=== PATIENT | male | born 1975 ===

== ENCOUNTER 2016-05-14 18:13 | Emergency (ER) | payer BC, OTHER ==
[2016-05-14 18:30] VITALS: TEMP 98.1; O2SAT 96
[2016-05-14] MEDS ORDERED: NS 1,000 ML IV ONE (18:50)
[2016-05-14] MEDS ORDERED: ONDANSETRON 4 MG/2 ML VIAL IVP ONE (18:50)
[2016-05-14] MEDS ORDERED: HYDROmorphONE/DILAUDID 1 MG/ML SYR IVP ONE (18:50)
--- NOTE | 2016-05-14 18:51 | UCPHY ---
H & P Patient Type: New Chief Complaint Nursing Narrative: abdominal pain Source: Patient, Family Exam Limitations: No limitations - Personal History Current Tetanus Diphtheria and Acellular Pertussis (TDAP): Yes - Medical/Surgical History Hx Asthma: No Hx Chronic Respiratory Disease: No Hx Diabetes: No Hx Cardiac Disease: No Hx Renal Disease: No Hx Cirrhosis: No Hx Alcoholism: No Hx HIV/AIDS: No Hx Splenectomy or Spleen Trauma: No Other PMH: hernia - Family History Significant Family History: No pertinent family hx - Social History Smoking Status: Never smoked Time Seen by Provider: 05/14/16 18:47 HPI/ROS: CHIEF COMPLAINT: abdominal pain HISTORY OF PRESENT ILLNESS: 41-year-old male presents to Urgent Care complaining of lower abdominal pain that started 6 hours prior to arrival. Patient reports the pain feels like a cramping twisting pain that is constant. He has had 3 episodes of emesis. He denies nausea but reports when the pain gets severe he vomits. Patient denies diarrhea, he reports mild bilateral flank pain. No difficulty urinating. There is nothing that makes this pain better or worse. Patient reports this has happened 4 or 5 times in the past 2- 3 years, it usually lasts for few hours and then goes away. He has never been seen for this pain. Patient denies cough or cold, no sore throat. He ate breakfast and lunch without difficulty today. Patient drinks 1-2 beers every 2- 3 days, denies drug use. REVIEW OF SYSTEMS: A comprehensive 10 point review of systems is otherwise negative aside from elements mentioned in the history of present illness. (Monika Gallegos) - Physical Exam Exam: Physical Exam Gen: Alert and Oriented, NAD HEENT: PERRL, moist mucous membranes NECK: no meningismus CV: regular rate and regular rhythm PULM: CTAB, no wheezes ABDOMEN: soft, diffuse tenderness to palpation throughout, worse in right lower quadrant, negative rebound tenderness, negative Rovsing's, BS present BACK: Mild bilateral CVA tenderness NEURO: Neurologically grossly intact EXTREMITIES: normal appearing SKIN: no rash PSYCH: answers questions appropriately. (Monika Gallegos) Constitutional: Initial Vital Signs Temperature (C) 36.7 C 05/14/16 18:27 Heart Rate 80 05/14/16 18:27 Respiratory Rate 14 01/20/17 18:27 Blood Pressure 165/93 H 05/14/16 18:27 O2 Sat (%) 96 05/14/16 18:27 O2 Delivery Mode Room Air Allergies/Adverse Reactions: No Known Allergies Allergy (Verified 05/14/16 18:26) Home Medications: Medication Instructions Recorded HYOSCYAMINE SULFATE [LEVSIN-SL] 0.125 - 0.25 mg SL Q6 PRN #20 05/14/16 tab.subl Medical Decision Making ED Course/Re-evaluation: IV established, CBC, chemistry panel, lipase, LFTs and urinalysis ordered. 0.5 mg of Dilaudid, 4 mg of Zofran and 1 L normal saline ordered. 7pm- Report passed on to Dr. Garnica at the end of my shift pending labs and further workup. (oMnika Gallegos) Urgent Care PA supervision Physician documentation: The patient was evaluated and managed by the physician physician assistant initially until her departure at 6:00 p.m... My co-signature indicates that I have reviewed this chart and I agree with the findings and plan of care as documented. I assumed care after 6:00 p.m. and repeat examination patient has minimal lower belly tenderness with hyperactive bowel sounds. He is treated with Levsin 0.25 mg and Toradol with relief from 7/10 pain down to 1/10. He also had relief of nausea with Zofran. He felt significantly improved. In addition to his belly exam is exam revealed no testicular swelling or tenderness. Appreciate no significant evidence for inguinal hernia. Counseled the patient regarding his crampy abdominal pain explaining that he may have food intolerance or adhesions from previous surgery contributing to some crampy discomfort. His labs are benign-CBC, UA and metabolic panel. I counseled regarding these findings as well. He will follow up with Dr. Riley- general surgeon if he has any ongoing worsening symptoms despite the treatment plan. On repeat exam after Levsin tenderness has resolved. (Denys Garnica) - Data Points Laboratory Results: Laboratory Results 05/14/16 18:45 05/14/16 18:45 Medications Given: Discontinued Medications Hydromorphone HCl (Dilaudid) 0.5 mg IVP EDNOW ONE Stop: 05/14/16 18:51 Last Admin: 05/14/16 20:22 Dose: Not Given Hyoscyamine Sulfate (Levsin, Hyomax-Sl) 0.25 mg PO EDNOW ONE Stop: 05/14/16 19:09 Last Admin: 05/14/16 19:15 Dose: 0.25 mg Sodium Chloride (Ns) 1,000 mls @ 0 mls/hr IV ONCE ONE PRN Reason: Wide Open Stop: 05/14/16 18:51 Last Admin: 05/14/16 19:00 Dose: 1,000 mls Ketorolac Tromethamine (Toradol) 30 mg IVP EDNOW ONE Stop: 05/14/16 19:09 Last Admin: 05/14/16 19:15 Dose: 30 mg Ondansetron HCl (Zofran) 4 mg IVP EDNOW ONE Stop: 05/14/16 18:51 Last Admin: 05/14/16 19:00 Dose: 4 mg Departure - Departure Disposition: Home, Routine, Self-Care Clinical Impression: Abdominal cramping in right lower quadrant Condition: Good Instructions: Acute Abdominal Pain (ED) Additional Instructions: Diagnosis: Lower abdominal cramping Your labs were normal tonight Plan: Levsin if needed for cramping in the future Follow up with Dr. Riley if he have any ongoing symptoms despite treatment plan Good the emergency department for any significant worsening despite the treatment plan [place]errals: [place],. [Primary Care Provider] - As per Instructions Jaime Riley MD [Medical Doctor] - As per Instructions Prescriptions: HYOSCYAMINE SULFATE [LEVSIN-SL] 0.125 - 0.25 mg SL Q6 PRN #20 tab.subl PRN Reason: abdominal cramping - PQRS PQRS Measurement: na (Monika Gallegos) NA (Denys Garnica)
[2016-05-14 18:56] LABS: COLOR YELLOW; LEUKOCYTE ESTERASE,URINE NEGATIVE (NEGATIVE); NITRITE,URINE NEGATIVE (NEGATIVE)
[2016-05-14 19:01] LABS: % IMMATURE GRANULYOCYTES 0.2 % (0.0-1.1); ABSOLUTE IMMATURE GRANULOCYTES 0.02 10^3/uL (0.00-0.10); ADD DIFF? NO; ADD MORPH? NO; ADD SCAN? NO; ATYPICAL LYMPHOCYTE FLAG 10 (0-99); FRAGMENT RBC FLAG 0 (0-99); HEMOGLOBIN 17.5 g/dL (13.7-17.5); LEFT SHIFT FLG 0 (0-99); LIPEMIA HEMOLYSIS FLAG 90 (0-99); MEAN CELL HEMOGLOBIN 30.3 pg (27.9-34.1); MEAN CELL VOLUME 86.5 fL (81.5-99.8); MEAN PLATELET VOLUME 9.4 fL (8.7-11.7); PLATELET CLUMPS FLAG 20 (0-99); PLATELET COUNT 311 10^3/uL (150-400); RED BLOOD CELL COUNT 5.78 10^6/uL (4.40-6.38); RED CELL DISTRIBUTION WIDTH 12.6 % (11.5-15.2)
[2016-05-14 19:08] LABS: ALANINE AMINOTRANSFERASE 43 IU/L (21-72); ALBUMIN 4.7 g/dL (3.5-5.0); ALKALINE PHOSPHATASE 82 IU/L (38-126); ANION GAP 16 mEq/L (8-16); ASPARTATE AMINOTRANSFERASE 28 IU/L (17-59); BILIRUBIN,TOTAL 0.6 mg/dL (0.1-1.4); BILIRUBIN-CONJUGATED 0.4 mg/dL (0.0-0.5); BILIRUBIN-UNCONJUGATED 0.2 mg/dL (0.0-1.1); CALCIUM 9.7 mg/dL (8.5-10.4); CARBON DIOXIDE 27 mEq/l (22-31); CHLORIDE 102 mEq/L (97-110); GLOMERULAR FILTRATION RATE > 60; GLUCOSE 102 mg/dL (70-100); POTASSIUM 3.9 mEq/L (3.5-5.2); SODIUM 145 mEq/L (134-144); TOTAL PROTEIN 8.5 g/dL (6.3-8.2)
[2016-05-14] MEDS ORDERED: HYOSCYAMINE SULFATE 0.125 MG TAB PO ONE (19:08)
[2016-05-14] MEDS ORDERED: KETOROLAC 30 MG/1 ML SDV IVP ONE (19:08)
[2016-05-14 20:24] VITALS: BP 124/76; PULSE 77; RESP 15
== END 2016-05-14 20:24 | disposition home or self-care (01) ==
LOC: CED 18:13
DX: R10.31 Right lower quadrant pain (principal)
CPT/HCPCS: 80048-PO; 80076-PO; 81003-PO; 83690-PO; 85025-PO; 96361-PO; 96374-PO; 96375-PO; 99205-PO; G0463-PO; J1170; J1885; J2405

== ENCOUNTER → 2016-10-14 | Outpatient (CLI) | payer BC | LOC: BMCIMAGING 11:49 | PROVIDERS: ATTEND Physician Assistant | DX: R10.84 Generalized abdominal pain (principal); R11.10 Vomiting, unspecified; K59.00 Constipation, unspecified ==